=== PATIENT | male | born 1975 | race Caucasian/White ===

== ENCOUNTER 2023-01-01 23:21 | Emergency (ER) | payer OTHER ==
[~2023-01-01] VITALS: Ht 185.4 cm; Wt 85.0 kg
[2023-01-02] VITALS: BP 133/84; PULSE 104; RESP 18; TEMP 98.3
[2023-01-02] MEDS ORDERED: SULF-261 PO (00:21)
[2023-01-02] MEDS ORDERED: CEPH-558 PO (00:21)
[2023-01-02] MEDS ORDERED: IBUP-2342 PO (00:21)
[2023-01-02] MEDS ORDERED: CEPHALEXIN MONOHYDRATE 500 MG CAPSULE PO ONE (00:30)
[2023-01-02] MEDS ORDERED: SULFAMETHOX/TRIMETH DS 800-160 MG/TABLET PO ONE (00:30)
[2023-01-02] MEDS ORDERED: IBUPROFEN 600 MG TABLET PO ONE (00:30)
== END 2023-01-02 01:38 | disposition left against medical advice (07) ==
LOC: EMS 23:24
DX: L03.115 Cellulitis of right lower limb (principal); F17.210 Nicotine dependence, cigarettes, uncomplicated; F12.90 Cannabis use, unspecified, uncomplicated
CPT/HCPCS: 99284; Z7502; Z7610